=== PATIENT | male | born 1985 | race African-American/Black ===

== ENCOUNTER → 2016-08-04 | Outpatient (CLI) | payer OTHER ==
[2016-08-04 18:37] LABS: BASO # 0.1 K/mm3 (0.0-0.2); BASO % 1.5 % (0.0-1.0); EOS # 0.1 K/mm3 (0.0-0.50); LYMPH # 2.9 K/mm3 (1.5-4.5); LYMPH % 37.4 % (24.0-44.0); MEAN CORPUSCULAR HEMOGLOBIN 29.2 pg (27.0-33.0); MEAN CORPUSCULAR HGB CONC 34.4 g/dl (32.0-36.5); MONO # 0.5 K/mm3 (0.0-0.8); MONO % 7.5 % (0.0-5.0); NEUTROPHILS # 3.5 K/mm3 (1.8-7.7); NEUTROPHILS % 48.7 % (36.0-66.0); RED CELL DISTRIBUTION WIDTH 13.2 % (11.5-14.5); WHITE BLOOD COUNT 7.2 K/mm3 (4.0-10.0)
[2016-08-04 19:30] LABS: ALBUMIN 3.5 GM/DL (3.2-5.2); ALBUMIN/GLOBULIN RATIO 0.95 (1.00-1.93); ALKALINE PHOSPHATASE 51 U/L (45-117); ALT/SGPT 35 U/L (12-78); ANION GAP 9 MEQ/L (8-16); AST/SGOT 20 U/L (15-37); BILIRUBIN,TOTAL 0.5 MG/DL (0.2-1.0); BLOOD UREA NITROGEN 10 MG/DL (7-18); CALCIUM LEVEL 8.6 MG/DL (8.5-10.1); CARBON DIOXIDE LEVEL 29 MEQ/L (21-32); CHLORIDE LEVEL 106 MEQ/L (98-107); CHOLESTEROL LEVEL 253 MG/DL (<200); CREATININE FOR GFR 1.05 MG/DL (0.70-1.30); GLOMERULAR FILTRATION RATE > 60.0 (>60); GLUCOSE, FASTING 66 MG/DL (70-105); POTASSIUM SERUM 4.2 MEQ/L (3.5-5.1); SODIUM LEVEL 144 MEQ/L (136-145); TOTAL PROTEIN 7.2 GM/DL (6.4-8.2); TRIGLYCERIDES LEVEL 211 MG/DL (<150)
== END | disposition home or self-care (01) ==
LOC: M WUC 15:07
PROVIDERS: ATTEND Physician Assistant Medical
DX: E78.2 Mixed hyperlipidemia (principal)

== ENCOUNTER → 2016-08-28 | Outpatient (REF) | payer OTHER | END | disposition home or self-care (01) | LOC: M LAB REF 16:18 | PROVIDERS: ATTEND Physician Assistant | DX: J03.90 Acute tonsillitis, unspecified (principal) ==

== ENCOUNTER 2017-08-08 19:07 | Emergency (ER) | payer OTHER ==
[2017-08-08] MEDS: PERCOCET 5MG/325MG TAB PO ×2 (21:07→21:08)
[2017-08-08] MEDS: OXYCODONE/APAP 5MG/325MG(BULK FOR ED) 1 TABLET PO (22:32)
== END 2017-08-08 22:39 | disposition home or self-care (01) ==
LOC: M ED 19:07
DX: S92.002A Unspecified fracture of left calcaneus, initial encounter for closed fracture (principal); W17.89XA Other fall from one level to another, initial encounter; Y92.009 Unspecified place in unspecified non-institutional (private) residence as the place of occurrence of the external cause; Y93.E6 Activity, residential relocation; Y99.8 Other external cause status
CPT/HCPCS: 72110

== ENCOUNTER 2017-08-24 06:06 | Inpatient (IN) | payer OTHER ==
[2017-08-24] MEDS: LR 1,000 ML IV ×3 (06:15→17:33)
[2017-08-24] MEDS ORDERED: MIDAZOLAM INJ 2 MG/2 ML VIAL (J2250) As Ordered ×2 (07:18→07:23)
[2017-08-24] MEDS ORDERED: fentaNYL 100 MCG/2 ML INJECTION (J3010) As Ordered ×2 (07:18→11:50)
[2017-08-24] MEDS ORDERED: fentaNYL 250 MCG/5 ML INJECTION (J3010) As Ordered (07:23)
[2017-08-24] MEDS ORDERED: PROPOFOL 200 MG/20 ML VIAL As Ordered (07:23)
[2017-08-24] MEDS ORDERED: ROCURONIUM BROMIDE 50 MG/5 ML VIAL As Ordered (07:23)
[2017-08-24] MEDS ORDERED: LIDOCAINE 2% INJ 100 MG/5 ML SDV (FOR ANES.) As Ordered (07:23)
[2017-08-24] MEDS: MIDAZOLAM INJ 2 MG/2 ML VIAL (J2250) IV (07:35)
[2017-08-24] MEDS: fentaNYL 100 MCG/2 ML INJECTION (J3010) IV (07:35)
[2017-08-24] MEDS ORDERED: PHENYLephrine HCL 500 MCG/5 ML (100MCG/ML) SYRINGE (J2370) As Ordered ×3 (09:03→12:17)
[2017-08-24] MEDS: ceFAZolin 1GM INJ (J0690 PER 500MG) As Ordered (09:19)
[2017-08-24] MEDS ORDERED: ePHEDrine INJ 50 MG/ML VIAL As Ordered (09:28)
[2017-08-24] MEDS ORDERED: HYDROmorphone HCL 2 MG/ML 1ML VIAL (J1170) As Ordered (10:28)
[2017-08-24] MEDS ORDERED: ONDANSETRON 4MG/2ML VIAL (J2405) As Ordered (11:51)
[2017-08-24] MEDS ORDERED: NEOSTIGMINE 10 MG/10 ML VIAL (J2710) As Ordered (11:51)
[2017-08-24] MEDS ORDERED: GLYCOPYRROLATE INJ 0.2 MG/ML 2 ML VIAL As Ordered (11:52)
[2017-08-24] MEDS ORDERED: ceFAZolin 1GM INJ (J0690 PER 500MG) As Ordered (13:30)
[2017-08-24] MEDS ORDERED: NORCO, ANEXSIA 5/325MG TABLET (HYDROcodone/ACETAMINOPHEN) PO (15:00)
[2017-08-24] MEDS ORDERED: ONDANSETRON 4MG/2ML VIAL (J2405) IV (15:00)
[2017-08-24] MEDS ORDERED: fentaNYL 100 MCG/2 ML INJECTION (J3010) IV (15:00)
[2017-08-24] MEDS ORDERED: MORPHINE 2 MG/ML 1ML SYRINGE IV (15:30)
[2017-08-24] MEDS ORDERED: FLEET ENEMA PR (15:30)
[2017-08-24] MEDS ORDERED: oxyCODONE 5MG TAB PO ×2 (15:30)
[2017-08-24] MEDS: ACETAMINOPHEN 500 MG TAB PO ×2 (17:32→21:41)
[2017-08-24] MEDS: LIDOCAINE 1% MDV 20ML VIAL SC (17:32)
[2017-08-24] MEDS: VITAMIN D 1,000 INTERNATIONAL UNITS TABLET PO (18:07)
[2017-08-24] MEDS: ASPIRIN 325 MG TAB PO (21:42)
[2017-08-25] MEDS: LR 1,000 ML IV (01:30)
[2017-08-25] MEDS: ACETAMINOPHEN 500 MG TAB PO ×3 (06:26→22:28)
[2017-08-25] MEDS: ASPIRIN 325 MG TAB PO ×2 (08:16→20:42)
[2017-08-25] MEDS: VITAMIN D 1,000 INTERNATIONAL UNITS TABLET PO (08:16)
[2017-08-25] MEDS: oxyCODONE 5MG TAB PO (20:43)
[2017-08-26] MEDS: ACETAMINOPHEN 500 MG TAB PO (06:03)
[2017-08-26] MEDS: RIVAROXABAN 10 MG TAB (XARELTO) PO (08:23)
[2017-08-26] MEDS: VITAMIN D 1,000 INTERNATIONAL UNITS TABLET PO (08:23)
[2017-08-26 08:31] LABS: HEMATOCRIT 34.1 % (42.0-52.0); HEMOGLOBIN 11.6 g/dl (14.0-18.0)
== END 2017-08-26 12:05 | disposition home or self-care (01) | DRG 505 ==
LOC: M OR 06:06 → M MS5PR 15:35
PROC: 0QSM04Z Reposition Left Tarsal with Internal Fixation Device, Open Approach (ICD-10-PCS; principal; 2017-08-24 07:30)
DX: S92.062A Displaced intraarticular fracture of left calcaneus, initial encounter for closed fracture (principal); W17.89XA Other fall from one level to another, initial encounter; Y92.9 Unspecified place or not applicable; Y93.89 Activity, other specified; Y99.8 Other external cause status

== ENCOUNTER 2018-05-06 09:14 | Day surgery (SDC) | payer OTHER ==
[2018-05-06] MEDS ORDERED: PROPOFOL 200 MG/20 ML VIAL As Ordered ×2 (09:56)
[2018-05-06] MEDS ORDERED: LIDOCAINE 2% INJ 100 MG/5 ML SDV (FOR ANES.) As Ordered ×2 (09:56)
[2018-05-06] MEDS ORDERED: fentaNYL 100 MCG/2 ML INJECTION (J3010) As Ordered ×2 (09:57)
[2018-05-06] MEDS ORDERED: MIDAZOLAM INJ 2 MG/2 ML VIAL (J2250) As Ordered ×4 (09:57→10:28)
[2018-05-06] MEDS ORDERED: ONDANSETRON 4MG/2ML VIAL (J2405) As Ordered ×2 (09:57)
[2018-05-06] MEDS ORDERED: SUCCINYLCHOLINE 100 MG/5 ML SYRINGE (J0330) As Ordered ×2 (09:57)
[2018-05-06] MEDS ORDERED: dexameTHASONE 4 MG/ML 1ML VIAL (J1100) As Ordered ×2 (09:57)
[2018-05-06] MEDS ORDERED: ROCURONIUM BROMIDE 50 MG/5 ML VIAL As Ordered ×2 (09:59)
[2018-05-06] MEDS: BUPIVACAINE/EPIN 0.5% 30 ML VIAL As Ordered ×2 (10:56)
[2018-05-06] MEDS: LIDOCAINE W/EPINEPHRINE 1% 20ML VIAL As Ordered ×2 (10:56)
[2018-05-06] MEDS ORDERED: ESMOLOL INJ 100MG/10ML VIAL As Ordered ×2 (11:10)
[2018-05-06] MEDS: IBUPROFEN 100 MG/5 ML SUSP UDC DYE FREE PO ×2 (11:57)
[2018-05-06] MEDS ORDERED: IBUPROFEN 100 MG/5 ML SUSP UDC DYE FREE As Ordered ×2 (11:57)
[2018-05-06] MEDS ORDERED: fentaNYL 100 MCG/2 ML INJECTION (J3010) IV ×2 (12:00)
[2018-05-06] MEDS ORDERED: ONDANSETRON 4MG/2ML VIAL (J2405) IV ×2 (12:00)
[2018-05-06] MEDS ORDERED: LR 1,000 ML IV ×4 (12:00)
[2018-05-06] MEDS ORDERED: NORCO, ANEXSIA 5/325MG TABLET (HYDROcodone/ACETAMINOPHEN) PO ×2 (12:00)
== END 2018-05-06 12:55 | disposition home or self-care (01) ==
LOC: M SDC 12:55
DX: J35.01 Chronic tonsillitis (principal); G47.30 Sleep apnea, unspecified
CPT/HCPCS: 42826

== ENCOUNTER 2018-05-12 12:42 | Emergency (ER) | payer OTHER ==
[2018-05-12] MEDS: NS 1,000 ML IV (14:42)
[2018-05-12] MEDS: MORPHINE 4 MG/ML 1ML VIAL/SYRINGE (J2270) IV (14:42)
[2018-05-12 14:53] LABS: BASO % 0.5 % (0.0-1.0); EOS # 0.1 10^3/uL (0.0-0.50); EOS % 0.9 % (0.0-3.0); HEMATOCRIT 53.2 % (42.0-52.0); HEMOGLOBIN 18.2 g/dl (13.5-17.5); IMMATURE GRANULOCYTE % 0.3 % (0-3.0); LYMPH # 2.5 10^3/uL (1.5-4.5); LYMPH % 31.8 % (24.0-44.0); MEAN CORPUSCULAR HEMOGLOBIN 28.8 pg (27.0-33.0); MEAN CORPUSCULAR HGB CONC 34.2 g/dl (32.0-36.5); MEAN CORPUSCULAR VOLUME 84.3 fl (80.0-96.0); MONO # 0.7 10^3/uL (0.0-0.8); MONO % 8.9 % (0.0-5.0); NEUTROPHILS # 4.5 10^3/uL (1.8-7.7); NEUTROPHILS % 57.6 % (36.0-66.0); PLATELET COUNT, AUTOMATED 290 10^3/uL (150-450); RED BLOOD COUNT 6.31 10^6/uL (4.30-6.10); RED CELL DISTRIBUTION WIDTH 12.6 % (11.5-14.5); WHITE BLOOD COUNT 7.8 10^3/uL (4.0-10.0)
[2018-05-12 15:12] LABS: ANION GAP 11 MEQ/L (8-16); BLOOD UREA NITROGEN 17 MG/DL (7-18); CALCIUM LEVEL 9.6 MG/DL (8.5-10.1); CARBON DIOXIDE LEVEL 27 MEQ/L (21-32); CHLORIDE LEVEL 103 MEQ/L (98-107); GLOMERULAR FILTRATION RATE > 60.0 (>60); GLUCOSE, FASTING 92 MG/DL (70-100); POTASSIUM SERUM 4.1 MEQ/L (3.5-5.1); SODIUM LEVEL 141 MEQ/L (136-145)
== END 2018-05-12 16:03 | disposition home or self-care (01) ==
LOC: M ED 12:42
DX: G89.18 Other acute postprocedural pain (principal); J02.9 Acute pharyngitis, unspecified
CPT/HCPCS: J2270

== ENCOUNTER 2020-11-14 15:55 | Emergency (ER) | payer OTHER ==
[~2020-11-14] VITALS: Ht 195.6 cm; Wt 113.6 kg
[2020-11-14 15:55] VITALS: BP 133/75
[~2020-11-14 15:55] MED LIST: ASPI-1 PO; HYDR-3713; IBUP80TA PO; MAGICMW SS; OXYC-517 PO; OXYC1TAB15 PO; VITA-243 PO; XARE10TA PO
[2020-11-14] MEDS ORDERED: ACET1TAB55 PO (17:00)
== END 2020-11-14 18:55 | disposition left against medical advice (07) ==
LOC: M ED 15:55
DX: Z53.21 Procedure and treatment not carried out due to patient leaving prior to being seen by health care provider (principal)

== ENCOUNTER → 2021-07-12 | Outpatient (REF) ==
[~2021-07-12] MED LIST changes: +ACET1TAB55 PO; -OXYC1TAB15 PO; +OXYC7.5T3 PO
== END ==
LOC: M LABSMTC 09:09
PROVIDERS: ATTEND Pediatrics
DX: Z11.52 Encounter for screening for COVID-19 (principal)

== ENCOUNTER → 2021-07-18 | Outpatient (REF) | payer OTHER | LOC: M LAB REF 11:15 | PROVIDERS: ATTEND Physician Assistant | DX: R50.9 Fever, unspecified (principal) ==